=== PATIENT | male | born 1950 | race Caucasian/White ===

== ENCOUNTER → 2018-03-17 | Outpatient (CLI) | payer MEDICARE, OTHER ==
[~2018-03-17] MED LIST: ALL300 PO; AMLO-104 PO; ASPI81TA94 PO; ATOR20TA65 PO; BLOO-1037 ASDIRECTED; CALC500T6 PO; CYAN25004 PO; DOCU-416 PO; ESOM40CA42 PO; HUMALOG SC; INSU100C12 SQ; INSU100I28 SQ; INSU200I SUBQ; INSU300I SUBQ; LANI SC; LEVO50TA80 PO; LEVO75TA73 PO; LISI-355 PO; MULT1CAP41 PO; NEED-498 ASDIRECTED; NEED-653; OMEG-11 PO; OMEP2.5S PO; OMEP40CA45 PO; OMEP40CA48 PO; OXYC-865 PO; POTA99TA10 PO; RAMI10CA72 PO; RAMI5CAP53 PO; ROS10 PO; TADA5TAB7 PO; [UNRECOGNIZED DRUG - SUPPLY] ASDIRECTED
[2018-03-17 10:07] LABS: PLATELET COUNT, AUTOMATED 250 K/uL (150-450)
== END ==
LOC: LAB 09:33
PROVIDERS: ATTEND Internal Medicine
DX: N40.0 Benign prostatic hyperplasia without lower urinary tract symptoms (principal); I10 Essential (primary) hypertension; E11.9 Type 2 diabetes mellitus without complications; E74.8 Other specified disorders of carbohydrate metabolism; E03.9 Hypothyroidism, unspecified
CPT/HCPCS: 36415; 81001; 82043; 85025; G0103; 84153

== ENCOUNTER → 2018-06-26 | Outpatient (REF) | payer MEDICARE, OTHER ==
[~2018-06-26] MED LIST changes: -RAMI5CAP53 PO; +RAMI5CAP7 PO
[2018-06-26 15:05] LABS: PLATELET COUNT, AUTOMATED 227 K/uL (150-450)
== END ==
LOC: ZZSTITCHES 14:53
PROVIDERS: ATTEND Physician Assistant
DX: E30.0 Delayed puberty (principal); E31.9 Polyglandular dysfunction, unspecified; E88.89 Other specified metabolic disorders
CPT/HCPCS: 81001; 82040; 82247; 82310; 82374; 82435; 82565; 82947; 84075; 84132; 84155; 84295; 84450; 84460; 84520; 85025

== ENCOUNTER → 2018-07-01 | Outpatient (CLI) | payer MEDICARE, OTHER ==
[2018-07-01 11:03] LABS: PLATELET COUNT, AUTOMATED 220 K/uL (150-450)
[2018-07-01 11:23] LABS: INR 0.91
[2018-07-01 11:27] LABS: LDL CHOLESTEROL 126 mg/dl
== END ==
LOC: LAB 10:34
PROVIDERS: ATTEND Internal Medicine
DX: R94.5 Abnormal results of liver function studies (principal); E03.9 Hypothyroidism, unspecified; E78.5 Hyperlipidemia, unspecified; I10 Essential (primary) hypertension; E11.9 Type 2 diabetes mellitus without complications
CPT/HCPCS: 36415; 80074; 81001; 82040; 82150; 82247; 82310; 82374; 82435; 82465; 82565; 82728; 82947; 82977; 83036; 83540; 83550; 83690; 83718; 84075; 84132; 84155; 84295; 84443; 84450; 84460; 84478; 84520; 85025; 85610; 86038

== ENCOUNTER 2018-07-10 16:14 | Outpatient (RCR) | payer MEDICARE, OTHER ==
[2018-07-15] MEDS ORDERED: LISI-355 PO (11:30)
[2018-07-15] MEDS ORDERED: OMEP40CA48 PO (11:30)
[2018-07-15] MEDS ORDERED: LEVO75TA73 PO (11:30)
[2018-07-21] MEDS ORDERED: FLAS1EAC2 (14:26)
[2018-07-21] MEDS ORDERED: FLAS1KIT2 TD (14:26)
[2018-08-01] MEDS ORDERED: TADA5TAB7 PO (11:56)
== END 2018-07-10 18:00 | disposition home or self-care (01) ==
LOC: US 16:14 → EDSTATUS 16:14 → US 18:00
PROVIDERS: ATTEND Internal Medicine
DX: Z02.9 Encounter for administrative examinations, unspecified (principal)

== ENCOUNTER → 2018-07-14 | Outpatient (CLI) | payer MEDICARE, OTHER ==
--- NOTE | 2018-07-14 10:27 | RADIOLOGY IMAGING REPORT ---
FACILITY: [facility] - [place] PATIENT NAME: Cade Washburn : 1950 MR: [id number] V: [id number] EXAM DATE: ORDERING PHYSICIAN: MARY ANN EVANS TECHNOLOGIST: [place] [facility] [place] Cade Washburn : 1950 Visit/Account:[id number] Date of Sevice: 07/14/2018 LIVER HISTORY: Elevated LFTS COMPARISON: None. FINDINGS: Gallbladder: There is extensive echogenic material within the gallbladder likely representing stones/ sludge. Gallbladder wall measured 3.3 mm in thickness. There is a positive Munguia sign by technolog ist notation. Liver: Increased echogenicity throughout the liver can be seen with fatty infiltration other infiltra tive process Common duct: Normal, 4.9 mm diameter. Pancreas: Not well seen due to overlying bowel gas Right kidney: Right kidney appeared unremarkable measuring 13.5 cm in length Upper abdominal aorta and IVC: Patent. Ascites: None visualized. IMPRESSION: Extensive echogenic material within the gallbladder likely representing stones/sludge. There was a p ositive Munguia sign by technologist notation Increased echogenicity throughout the liver can be seen with fatty infiltration other infiltrative pr ocess Report Dictated By: Celia Dubose MD at 07/14/2018 10:19 AM Report E-Signed By: Celia Dubose MD at 07/14/2018 10:22 AM WSN:[email or web address]
== END ==
LOC: US 01:02
PROVIDERS: ATTEND Internal Medicine
DX: K76.0 Fatty (change of) liver, not elsewhere classified (principal); K80.20 Calculus of gallbladder without cholecystitis without obstruction; R19.8 Other specified symptoms and signs involving the digestive system and abdomen
CPT/HCPCS: 76705

== ENCOUNTER → 2018-07-21 | Outpatient (CLI) | payer MEDICARE, OTHER ==
[~2018-07-21] MED LIST changes: +FLAS1EAC2; +FLAS1KIT2 TD
[2018-07-21 10:11] LABS: PLATELET COUNT, AUTOMATED 254 K/uL (150-450)
[2018-07-21 10:20] LABS: LDL CHOLESTEROL 101 mg/dl
== END ==
LOC: LAB 09:36
PROVIDERS: ATTEND Internal Medicine
DX: E11.9 Type 2 diabetes mellitus without complications (principal); E78.5 Hyperlipidemia, unspecified; I10 Essential (primary) hypertension
CPT/HCPCS: 36415; 82040; 82247; 82310; 82374; 82435; 82465; 82565; 82947; 83036; 83718; 84075; 84132; 84155; 84295; 84450; 84460; 84478; 84520; 85025

== ENCOUNTER → 2019-04-29 | Outpatient (CLI) | payer MEDICARE, OTHER ==
[~2019-04-29] MED LIST changes: +EZET10TA41 PO; +LEVO88TA45 PO; +LISI-353 PO; +NEED-653 MC; -ROS10 PO; +ROSU10TA PO
--- NOTE | 2019-04-29 16:19 | RADIOLOGY IMAGING REPORT ---
FACILITY: [facility] - [place] PATIENT NAME: Cade Washburn : 1950 MR: [id number] V: [id number] EXAM DATE: ORDERING PHYSICIAN: MARY ANN EVANS TECHNOLOGIST: Location: [facility] - [place] Patient: Cade Washburn : 1950 Visit/Account:[id number] Date of Sevice: 04/29/2019 CHEST PA LAT Additional pertinent History: Preop COMPARISON STUDIES: none FINDINGS: Support lines and catheters: None Lungs and Pleura: Similar course interstitial lung markings symmetrically throughout both lung field s. No infiltrate, consolidation, or mass lesion seen. Heart and vasculature: Negative. Quin and Mediastinum: Negative. Bones and Chest wall: Ossification anterior longitudinal ligament compatible with DISH. Upper Abdomen: Negative. IMPRESSION: 1. Negative chest for acute cardiopulmonary disease. Report Dictated By: Sky Garza MD at 04/29/2019 4:09 PM Report E-Signed By: Sky Garza MD at 04/29/2019 4:11 PM WSN:[id number]
== END ==
LOC: RAD 15:36
PROVIDERS: ATTEND Internal Medicine
DX: Z01.818 Encounter for other preprocedural examination (principal); I10 Essential (primary) hypertension
CPT/HCPCS: 71046

== ENCOUNTER → 2019-04-29 | Outpatient (CLI) | payer MEDICARE, OTHER | LOC: RESP 15:30 | PROVIDERS: ATTEND Internal Medicine | DX: Z01.818 Encounter for other preprocedural examination (principal); I10 Essential (primary) hypertension ==

== ENCOUNTER → 2019-04-30 | Outpatient (CLI) | payer MEDICARE, OTHER ==
[2019-04-30 07:36] LABS: LDL CHOLESTEROL 91 mg/dl
[2019-04-30 07:45] LABS: PLATELET COUNT, AUTOMATED 240 K/uL (150-450)
--- NOTE | 2019-04-30 09:13 | EKG ---
[place]AC[place] [facility] [place]IENT NAME: KENNETH DODSON : [id number] MR: [id number] V: [id number] EXAM DATE: ORDERING PHYSICIAN: MARY ANN EVANS TECHNOLOGIST: LISA Test Reason : PRE-OP Blood Pressure : / mmHG Vent. Rate : 076 BPM Atrial Rate : 076 BPM P-R Int : 178 ms QRS Dur : 096 ms QT Int : 396 ms P-R-T Axes : 052 059 048 degrees QTc Int : 445 ms Normal sinus rhythm Normal ECG When compared with ECG of 04-MAR-2014 10:41, No significant change was found Confirmed by MARY ANN EVANS ([id number]) on 05/04/2019 4:37:45 PM Referred By: TOR Confirmed By:MARY ANN EVANS
== END ==
LOC: LAB 07:04
PROVIDERS: ATTEND Internal Medicine
DX: Z01.818 Encounter for other preprocedural examination (principal); E03.9 Hypothyroidism, unspecified; E11.9 Type 2 diabetes mellitus without complications; I10 Essential (primary) hypertension; E78.5 Hyperlipidemia, unspecified
CPT/HCPCS: 36415; 81001; 83036; 84443; 85025; G0103; 82040; 82247; 82310; 82374; 82435; 82465; 82565; 82947; 83718; 84075; 84132; 84153; 84155; 84295; 84450; 84460; 84478; 84520